=== PATIENT | female | born 1995 | race Native Hawaiian/Other Pacific Islander ===

== ENCOUNTER → 2017-11-06 10:37 | Outpatient (CLI) | payer OTHER, SELFPAY ==
[2017-11-07 14:36] LABS: Strep Grp B PCR NEG for Grp B Strep
== END ==
DX: Z34.03 Encounter for supervision of normal first pregnancy, third trimester (principal); Z3A.35 35 weeks gestation of pregnancy
CPT/HCPCS: 87653

== ENCOUNTER 2017-11-16 05:09 | Inpatient (IN) | payer OTHER, SELFPAY ==
[2017-11-16] VITALS (10 sets, daily range): BP systolic 59–151; BP diastolic 29–84; PULSE 88–103; RESP 17–22; TEMP 36.3–37.6; O2SAT 97–100
[2017-11-16 05:38] LABS: Bacteria Urine None Seen
[2017-11-16 05:40] LABS: Add Manual Diff / Slide Review NO; Basophils Percent Auto 0.2 % (0-2); Eosinophils Percent Auto 0.5 % (2-4); Hematocrit 33.2 % (36-46); Hemoglobin 11.5 g/dL (12.0-16.0); Lymphocytes Percent Auto 18.7 % (25-40); Mean Corpuscular HGB Conc 34.8 % (30-36); Mean Corpuscular Hemoglobin 27.4 PG (26-34); Mean Corpuscular Volume 78.9 fL (80-100); Monocytes Percent Auto 5.6 % (3-14); Neutrophils Absolute Auto 8200 /uL (3000-5900); Platelet Count 220 X10^3/uL (150-400); Red Blood Cell Count 4.21 X10^6/uL (4.0-5.2); Red Cell Distribution Width 15.8 % (11.6-14.8)
[2017-11-16 05:42] LABS: Appearance Urine UA CLEAR; Bilirubin Urine UA NEGATIVE (NEGATIVE); Color Urine UA YELLOW; Glucose Urine UA NEGATIVE (Normal); Ketones Urine UA NEGATIVE (NEGATIVE); Leukocyte Esterase Urine UA NEGATIVE (NEGATIVE); Nitrite Urine UA Negative (Negative); Occult Blood Urine UA 1+ (Negative); Protein Urine UA NEGATIVE (Negative); Urobilinogen Urine UA 0.2 E.U./dL (0.2)
[2017-11-16 05:50] LABS: Culture Indicated Urine Cult Not Indicated; RBC Urine 0-1/HPF (0-5/HPF); Squamous Epithelial Cell Urine 0-1 /HPF; WBC Urine 0-1/HPF (0-5/HPF)
--- NOTE | 2017-11-16 07:25 | PM.OBHP.1 ---
OB HPI History of Present Illness Chief complaint: EVALUATION OF LABOR Narrative: Ketan Patterson is a 22 year old female gestational diabetic at 36 weeks of who presents with premature spontaneous rupture membranes. Patient is in active labor. The patient is a one para 0 with an ROBERT established by a 20 week ultrasound of December 08, 2017. The patient transferred care from [facility] at 34 weeks of . She is blood type B-positive antibody screen negative. Her last hematocrit history. Her hepatitis B surface antigen was negative. Her HIV was negative. Chlamydia and GC screens were negative. Her hep C was negative. The patient had a 2nd trimester quad screening which was negative. The patient had reported abnormal 1 hr screen and a fasting of her 3 hr screen was 132 and three are screen was canceled. Patient was placed on a 1500 calorie ADA diet and followed. Her blood sugars fasting remained low 90s or high these. Her 1 hr screens were consistently 120 or less. Weight remains stable through this period of time. Serial ultrasounds showed accelerated growth curve beginning at the 78th percentile with a 2nd screen at the 90th percentile. Patient now presents with spontaneous rupture the membranes in active labor. Evaluation Evaluation Variability: Average (6-10) monitor accelerations: Present Uterine Contraction Intensity: Strong/Firm Category of Tracing: I Cervical dilation (cm): 4 Cervical effacement (%): 100 station: -2 Laboratory results: Laboratory Tests 11/16/17 11/16/17 11/16/17 04:55 05:15 05:15 WBC 11.0 RBC 4.21 Hgb 11.5 L Hct 33.2 L MCV 78.9 L MCH 27.4 MCHC 34.8 RDW 15.8 H Plt Count 220 Neut % (Auto) 75.0 Lymph % (Auto) 18.7 L [place] % (Auto) 5.6 Eos % (Auto) 0.5 L Baso % (Auto) 0.2 Neut # (Auto) 8200 H Urine Color Yellow Urine Appearance Clear Urine pH 7.0 Ur Specific [place] 1.010 Urine Protein Negative Urine Glucose (UA) Negative Urine Ketones Negative Urine Occult Blood 1+ H Urine Nitrate Negative Urine Bilirubin Negative Urine Urobilinogen 0.2 Ur Leukocyte Esterase Negative Urine RBC 0-1/hpf Urine WBC 0-1/hpf Ur Squamous Epith Cells 0-1 /hpf Urine Bacteria None seen Ur Culture Indicated? Cult not indicated Micro UA Comment Not Reportable Blood Type B Positive Antibody Screen Negative Non-invasive Membranes Rupture Test: positive Comments: Patient presented in active labor 4 cm dilated with documented rupture membranes [facility] Social History Smoking Status: Former smoker Meds Home Medications Medication Instructions Recorded Confirmed Type 1 tab PO DAILY 11/16/17 11/16/17 History vitamin B complex 1 tab PO DAILY 11/16/17 11/16/17 History Allergies Allergy/AdvReac Type Severity Reaction Status Date / Time No Known Drug Allergies Allergy Verified 11/16/17 04:48 Exam Vital Signs (past 8 hours): Vital Signs - 8 hr 11/16/17 05:52 Blood Pressure 151/84 H HENMT Head: normal to inspection Ears: hearing grossly normal bilaterally Nose: external nose normal Face and sinus: normal facial exam Mouth: oral mucosae normal and tongue normal Teeth and gingiva: dentition normal Throat: posterior oropharynx normal and uvula midline Eyes General: appearance normal, both eyes and all related structures Eyelids: eyelids normal Conjunctivae: conjunctivae normal Sclera: sclerae normal Cornea: corneas normal Pupils: PERRL Chest Breast inspection: normal inspection of the breasts Breast Palpation: normal palpation of the breasts Resp Effort & Inspection: normal respiratory effort Auscultation: clear to auscultation bilaterally Cardio Palpation: normal PMI Rate: regular rate Rhythm: regular rhythm Heart Sounds: S1 normal and S2 normal GI Palpation: soft and no hepatosplenomegaly Percussion: normal to percussion Auscultation: normal bowel sounds Back/Spine/Pelvis Thoracic/Lumbar Spine: thoracic and lumbar spine normal to inspection Skin Lesions: no lesions Rashes: no rashes Trauma: no lacerations or abrasions Wounds: no wounds Neuro General: alert, tone normal, no focal motor deficits and normal sensation to monofilament Extrem General: normal to inspection and full ROM Psych Appearance: grossly normal Objective Labs Result Diagrams: 11/16/17 05:15 Labs: Laboratory Results - last 24 hr 11/16/17 11/16/17 11/16/17 04:55 05:15 05:15 WBC 11.0 RBC 4.21 Hgb 11.5 L Hct 33.2 L MCV 78.9 L MCH 27.4 MCHC 34.8 RDW 15.8 H Plt Count 220 Neut % (Auto) 75.0 Lymph % (Auto) 18.7 L [place] % (Auto) 5.6 Eos % (Auto) 0.5 L Baso % (Auto) 0.2 Neut # (Auto) 8200 H Urine Color Yellow Urine Appearance Clear Urine pH 7.0 Ur Specific [place] 1.010 Urine Protein Negative Urine Glucose (UA) Negative Urine Ketones Negative Urine Occult Blood 1+ H Urine Nitrate Negative Urine Bilirubin Negative Urine Urobilinogen 0.2 Ur Leukocyte Esterase Negative Urine RBC 0-1/hpf Urine WBC 0-1/hpf Ur Squamous Epith Cells 0-1 /hpf Urine Bacteria None seen Ur Culture Indicated? Cult not indicated Micro UA Comment Not Reportable Blood Type B Positive Antibody Screen Negative Assessment and Plan Plan: Plan: 36 weeks with premature rupture membranes Gestational diabetic diet controlled Active labor Short maternal stature
--- NOTE | 2017-11-16 07:38 | P.HPOB_ITS ---
OB HPI History of Present Illness Chief complaint: EVALUATION OF LABOR Narrative: Ketan Patterson is a 22 year old female gestational diabetic at 36 weeks of who presents with premature spontaneous rupture membranes. Patient is in active labor. The patient is a one para 0 with an ROBERT established by a 20 week ultrasound of December 08, 2017. The patient transferred care from [facility] at 34 weeks of . She is blood type B-positive antibody screen negative. Her last hematocrit history. Her hepatitis B surface antigen was negative. Her HIV was negative. Chlamydia and GC screens were negative. Her hep C was negative. The patient had a 2nd trimester quad screening which was negative. The patient had reported abnormal 1 hr screen and a fasting of her 3 hr screen was 132 and three are screen was canceled. Patient was placed on a 1500 calorie ADA diet and followed. Her blood sugars fasting remained low 90s or high these. Her 1 hr screens were consistently 120 or less. Weight remains stable through this period of time. Serial ultrasounds showed accelerated growth curve beginning at the 78th percentile with a 2nd screen at the 90th percentile. Patient now presents with spontaneous rupture the membranes in active labor. Evaluation Evaluation Variability: Average (6-10) monitor accelerations: Present Uterine Contraction Intensity: Strong/Firm Category of Tracing: I Cervical dilation (cm): 4 Cervical effacement (%): 100 station: -2 Laboratory results: Laboratory Tests 11/16/17 11/16/17 11/16/17 04:55 05:15 05:15 WBC 11.0 RBC 4.21 Hgb 11.5 L Hct 33.2 L MCV 78.9 L MCH 27.4 MCHC 34.8 RDW 15.8 H Plt Count 220 Neut % (Auto) 75.0 Lymph % (Auto) 18.7 L [place] % (Auto) 5.6 Eos % (Auto) 0.5 L Baso % (Auto) 0.2 Neut # (Auto) 8200 H Urine Color Yellow Urine Appearance Clear Urine pH 7.0 Ur Specific [place] 1.010 Urine Protein Negative Urine Glucose (UA) Negative Urine Ketones Negative Urine Occult Blood 1+ H Urine Nitrate Negative Urine Bilirubin Negative Urine Urobilinogen 0.2 Ur Leukocyte Esterase Negative Urine RBC 0-1/hpf Urine WBC 0-1/hpf Ur Squamous Epith Cells 0-1 /hpf Urine Bacteria None seen Ur Culture Indicated? Cult not indicated Micro UA Comment Not Reportable Blood Type B Positive Antibody Screen Negative Non-invasive Membranes Rupture Test: positive Comments: Patient presented in active labor 4 cm dilated with documented rupture membranes [facility] Social History Smoking Status: Former smoker Meds Home Medications Medication Instructions Recorded Confirmed Type 1 tab PO DAILY 11/16/17 11/16/17 History vitamin B complex 1 tab PO DAILY 11/16/17 11/16/17 History Allergies Allergy/AdvReac Type Severity Reaction Status Date / Time No Known Drug Allergies Allergy Verified 11/16/17 04:48 Exam Vital Signs (past 8 hours): Vital Signs - 8 hr 3 11/16/17 05:52 Blood Pressure 151/84 H HENMT Head: normal to inspection Ears: hearing grossly normal bilaterally Nose: external nose normal Face and sinus: normal facial exam Mouth: oral mucosae normal and tongue normal Teeth and gingiva: dentition normal Throat: posterior oropharynx normal and uvula midline Eyes General: appearance normal, both eyes and all related structures Eyelids: eyelids normal Conjunctivae: conjunctivae normal Sclera: sclerae normal Cornea: corneas normal Pupils: PERRL Chest Breast inspection: normal inspection of the breasts Breast Palpation: normal palpation of the breasts Resp Effort & Inspection: normal respiratory effort Auscultation: clear to auscultation bilaterally Cardio Palpation: normal PMI Rate: regular rate Rhythm: regular rhythm Heart Sounds: S1 normal and S2 normal GI Palpation: soft and no hepatosplenomegaly Percussion: normal to percussion Auscultation: normal bowel sounds Back/Spine/Pelvis Thoracic/Lumbar Spine: thoracic and lumbar spine normal to inspection Skin Lesions: no lesions Rashes: no rashes Trauma: no lacerations or abrasions Wounds: no wounds Neuro General: alert, tone normal, no focal motor deficits and normal sensation to monofilament Extrem General: normal to inspection and full ROM Psych Appearance: grossly normal Objective Labs Result Diagrams: 11/16/17 05:15 Labs: Laboratory Results - last 24 hr 11/16/17 11/16/17 11/16/17 04:55 05:15 05:15 WBC 11.0 RBC 4.21 Hgb 11.5 L Hct 33.2 L MCV 78.9 L MCH 27.4 MCHC 34.8 RDW 15.8 H Plt Count 220 Neut % (Auto) 75.0 Lymph % (Auto) 18.7 L [place] % (Auto) 5.6 Eos % (Auto) 0.5 L Baso % (Auto) 0.2 Neut # (Auto) 8200 H Urine Color Yellow Urine Appearance Clear Urine pH 7.0 Ur Specific [place] 1.010 Urine Protein Negative Urine Glucose (UA) Negative Urine Ketones Negative Urine Occult Blood 1+ H Urine Nitrate Negative Urine Bilirubin Negative Urine Urobilinogen 0.2 Ur Leukocyte Esterase Negative Urine RBC 0-1/hpf Urine WBC 0-1/hpf Ur Squamous Epith Cells 0-1 /hpf Urine Bacteria None seen Ur Culture Indicated? Cult not indicated Micro UA Comment Not Reportable Blood Type B Positive Antibody Screen Negative Assessment and Plan Plan: Plan: 36 weeks with premature rupture membranes Gestational diabetic diet controlled Active labor Short maternal stature
[2017-11-16] MEDS: LACTATED RINGERS 1,000 ML 100 ML IV (08:30)
[2017-11-16] MEDS: OXYTOCIN PREMIX 30 UNIT/500 ML PLAST..BAG IV (09:15)
--- NOTE | 2017-11-16 09:56 | PM.OBPNLAB ---
Date/Time Date Patient Seen: 11/16/17 Time Patient Seen: 09:56 Pain Control Pain control: tolerating well and epidural Pelvic Exam Dilation (cm): 7 Effacement (%): 100 station: 0 Amniotic membrane status: Ruptured Comments: epeidural inplace. Started on pitocine Contractions Contraction intensity: Strong/Firm
--- NOTE | 2017-11-16 14:53 | PM.OBPRVD ---
Events: Labor < 37 Weeks, Labor Augmentation and Premature Rupture of Membrane Delivery date: 11/16/17 Intrapartal events: Mild Preeclampsia Induction method: none Delivery monitor: external FHT Route of delivery: Laceration description: Perineal - 2nd Degree Delivery repair: chromic Estimated blood loss (mL): 250 Anesthesia type: Epidural Complications: Significant shoulder dystocia corrected by Mata's maneuver rotation of the shoulders and delivery of the posterior arm Narrative: The patient was admitted at 36 weeks of with premature spontaneous rupture of the membranes in active labor. Her blood pressures were mildly elevated and she needed 10 mg labetalol to bring her pressures in a more normal range. Patient received epidural anesthesia and made rapid progress to complete. Patient pushed and delivered with a significant shoulder dystocia corrected by the Mata's maneuver rotation of the shoulders and deliver the posterior arm a live-born male infant with scores of four at 1 min and nine at 5 min. The patient sustained a second-degree perineal laceration. She had no cervical or vaginal tears. The placenta delivered spontaneously. The cord had three vessels. The estimated blood loss was 250 cc. The laceration was closed two 0 chromic suture without difficulty.
[2017-11-16] MEDS: fentaNYL 100 MCG/2 ML INJ 50 MCG IV (15:50)
[2017-11-16] MEDS: CEFOTETAN 2 GM/50 ML PIGGYBACK IV (16:16)
--- NOTE | 2017-11-16 16:56 | PM.GYNOP.1 ---
Operative Date/Time/Diagnoses - Date of procedure: 11/16/17 Time of procedure: 16:56 Pre-op diagnosis: Retained intrauterine blood clots post delivery Post-op diagnosis: same Procedure: Procedures Operation Date: 11/16/17 17:30 Actual Procedures Side Surgeon p Dilation and Curettage Paolo Banuelos MD Surgeon: Paolo Banuelos Anesthesia Type: Epidural and Sedation Operative Notes Findings: Large numbers of intrauterine blood clot Closure Type: not applicable Specimen(s): none Applied: catheter Estimated blood loss (mL): 1,000 Blood products transfused: none Procedure in detail: The patient is placed supine upon the operating table and epidural was set in place. Patient was then placed in the dorsal lithotomy position approximately 1000 cc of clots were removed from vagina. Tied Ray-Simon sponges were then used and introduced into the uterine cavity and the remainder of the blood clots removed. The by bacri balloon was then introduced and the bulb expanded to 180 cc. A drainage connection was hooked to the end to age a Salvador evacuator. There has been bleeding at the end of the procedure. A Spaulding catheter was then placed in the urine was clear. Patient tolerated the procedure well and was taken to the recovery room in satisfactory condition Post-operative Condition: stable Disposition: PACU Plan for aftercare: Transfer to [facility]
--- NOTE | 2017-11-16 17:00 | SUR.PHASEI ---
hypotentsion on arrival noted. Dr. Yung at bedside phenylephrine per dr. gomez. patient remains drowsy but responding to verbal c/o breast pressure and need to nurse. BP improved to 94/[address] gomez at bedside.
--- NOTE | 2017-11-16 17:11 | SUR.PHASEI ---
fundal check per OB rn. vaginal balloon in place attached to SHAI drain. minimal amount of blood in SHAI unchanged. able to express bright red blood around vaginal tube small amount with fundal check.
--- NOTE | 2017-11-16 17:21 | SUR.PHASEI ---
OB RN at bedside assissting in care report provided along with joint exam.
--- NOTE | 2017-11-16 17:24 | SUR.PHASEI ---
lab here for blood draw. report of pt. status to Dr. Yung approved transfer to L&D.
[2017-11-16 17:50] LABS: Add Manual Diff / Slide Review NO; Basophils Percent Auto 0.1 % (0-2); Eosinophils Percent Auto 0.1 % (2-4); Hematocrit 29.4 % (36-46); Hemoglobin 10.1 g/dL (12.0-16.0); Mean Corpuscular HGB Conc 34.4 % (30-36); Mean Corpuscular Hemoglobin 27.2 PG (26-34); Mean Corpuscular Volume 79.1 fL (80-100); Monocytes Percent Auto 5.8 % (3-14); Neutrophils Absolute Auto 16500 /uL (3000-5900); Platelet Count 208 X10^3/uL (150-400); Red Blood Cell Count 3.72 X10^6/uL (4.0-5.2); Red Cell Distribution Width 15.9 % (11.6-14.8); White Blood Cell Count 18.5 X10^3/uL (4.5-11.0)
[2017-11-16] MEDS: OXYCODONE/ACETAMINOPHEN 5/325 TABLET 2 TAB PO ×2 (18:22→23:09)
[2017-11-17] MEDS: LACTATED RINGERS 1,000 ML 125 ML IV (04:42)
--- NOTE | 2017-11-17 08:28 | P.DS_ITS ---
History of Present Illness Date Patient Seen: 11/17/17 Time Patient Seen: 08:27 Chief complaint: post of discharge Narrative: The patient Discharge Providers Date of admission: 11/16/17 05:09 Primary care physician: Paolo Banuelos MD Consults: 11/16/17 17:28 Consult to Community Relations Officer Routine Comment: Discharge provider: Paolo Banuelos MD Exam Vital Signs (past 8 hours): Pulse Oximetry 100 Oxygen Delivery Method Room Air Objective Labs Result Diagrams: 11/16/17 17:29 Labs: Laboratory Results - last 24 hr 11/16/17 11/16/17 17:29 17:29 WBC Cancelled 18.5 H D RBC Cancelled 3.72 L Hgb Cancelled 10.1 L Hct Cancelled 29.4 L MCV Cancelled 79.1 L MCH Cancelled 27.2 MCHC Cancelled 34.4 RDW Cancelled 15.9 H Plt Count Cancelled 208 Neut % (Auto) Cancelled 89.0 H Lymph % (Auto) Cancelled 5.0 L [place] % (Auto) Cancelled 5.8 Eos % (Auto) Cancelled 0.1 L Baso % (Auto) Cancelled 0.1 Neut # (Auto) Cancelled 10124 H Discharge Plan Discharge Plan Patient Disposition: Home, Self-Care Discharge Med Rec/Prescriptions Prescriptions: New oxycodone-acetaminophen [Percocet] 5-325 mg tablet 2 tab PO Q4-6H PRN (Reason: pain) Qty: 30 RF: 0 hydromorphone [Dilaudid] 2 mg tablet 2 mg PO Q4-6H PRN (Reason: pain) Qty: 10 RF: 0 Continue 1 tab tablet 1 tab PO DAILY RF: 0 vitamin B complex 1 tab tablet 1 tab PO DAILY RF: 0 Follow up/Referrals: Paolo Banuelos MD [Primary Care Provider] - 12/01/17 12:00 am Provider Discharge Instructions Diet: Diet as Tolerated Activity: up ad daryl may shower and bathe Wound Care Report to your healthcare provider any signs of infection, such as:: chills, fever, night sweats, increased pain and unusual drainage Discharge Data Primary Care Provider: Paolo Banuelos Attending Provider: Usman Jacobsen Admit Date/Time: 11/16/17 05:09
[2017-11-17 10:55] LABS: Hematocrit 18.4 % (36-46)
[2017-11-17] MEDS: OXYCODONE/ACETAMINOPHEN 5/325 TABLET 2 TAB PO ×2 (10:56→23:56)
[2017-11-17] MEDS: DOCUSATE 250 MG CAPSULE PO (10:56)
[2017-11-17] MEDS: FERROUS GLUCONATE 324 MG TABLET PO (11:01)
[2017-11-17 12:14] VITALS: BP 132/84; PULSE 105; RESP 18; TEMP 36.6
[2017-11-17 12:37] VITALS: BP 134/82; PULSE 103; RESP 18; TEMP 36.3
[2017-11-17 15:49] VITALS: BP 119/80; PULSE 84; RESP 16; TEMP 36.9
[2017-11-17 16:55] VITALS: BP 145/90; PULSE 97; RESP 18; TEMP 37.1
[2017-11-17 18:00] VITALS: BP 138/84; PULSE 91; RESP 17; TEMP 37
[2017-11-17 20:20] VITALS: BP 136/86; PULSE 90; RESP 17; TEMP 37.1
[2017-11-17] MEDS: LANOLIN OINT 7 GM 1 APPLIC TOP (23:55)
[2017-11-18] MEDS: DOCUSATE 250 MG CAPSULE PO (08:35)
[2017-11-18] MEDS: FERROUS GLUCONATE 324 MG TABLET PO (08:35)
[2017-11-18] MEDS: OXYCODONE/ACETAMINOPHEN 5/325 TABLET 2 TAB PO ×4 (08:35→20:30)
[2017-11-18 10:06] VITALS: BP 145/97; PULSE 113
[2017-11-18] MEDS: LABETALOL 20 MG/4 ML SYRINGE 10 MG IV (10:06)
--- NOTE | 2017-11-18 11:49 | P.PNOB_ITS ---
Subjective - OB Patient comments: no complaints baby status: doing well and nursing well feeding status: exclusively breast feeding Narrative: Patient status post vaginal delivery doing well patient sustained a hemorrhage of over 1000 cc. Her hematocrit fell to 18% and she was transfused 2 units of pack cells and her hematocrit this morning is 26%. She is up and about without any syncopal episodes in doing well. Exam Vital Signs (past 8 hours): Vital Signs - 8 hr 3 11/18/17 10:06 Pulse Rate 113 H Blood Pressure 145/97 H Pulse Oximetry 100 Oxygen Delivery Method Room Air Narrative Exam Narrative: Examination is confined abdomen pelvis The abdomen is soft and nontender with the fundus at U minus four Perineum is intact Lochia scant Objective Labs Result Diagrams: 11/17/17 21:40 Labs: Laboratory Results - last 24 hr 11/16/17 11/17/17 05:15 21:40 Hgb 9.0 L Hct 26.0 L Blood Type B Positive Antibody Screen Negative Crossmatch (AHG) See Detail Assessment & Plan Plan day: 2 plan OB: routine care Comments: Patient doing well. Mobile without any syncopal episodes. Baby is having bilirubin issues and is under the bili lights Time Spent With Patient Total time spent is greater than 50% in coordination of care (as documented) at patient's floor/unit and/or counseling patient: less than 15 minutes
[2017-11-18 11:55] VITALS: BP 128/84; PULSE 99
[2017-11-18] MEDS: LABETALOL 100 MG TABLET PO ×2 (11:55→21:00)
[2017-11-19] MEDS: OXYCODONE/ACETAMINOPHEN 5/325 TABLET 2 TAB PO ×4 (00:30→14:10)
[2017-11-19 09:32] VITALS: BP 138/76
[2017-11-19] MEDS: FERROUS GLUCONATE 324 MG TABLET PO (09:32)
[2017-11-19] MEDS: LABETALOL 100 MG TABLET PO (09:32)
[2017-11-19] MEDS: DOCUSATE 250 MG CAPSULE PO (09:33)
--- NOTE | 2017-11-19 10:35 | PM.OBDS.1 ---
Discharge Providers Date of admission: 11/16/17 05:09 Primary care physician: Paolo Banuelos MD Consults: 11/16/17 17:28 Consult to Ship Engines Operating Engineer Routine Comment: Discharge provider: Paolo Banuelos MD Discharge Date: 11/19/17 Summary Date Patient Seen: 11/19/17 Time Patient Seen: 10:36 Hospital Course: Please see detailed hospital course in procedures section below Peripartum Data Delivery Method: Natural Vaginal Laceration description: Perineal - 2nd Degree Procedures: Patient presented in active labor at 36 weeks of with premature rupture the membranes. Patient had been wrapped in labor to complete and delivered spontaneously a live born male without difficulty. Patient our sustained a significant hemorrhage and was taken to surgery where bacri balloon was placed with good results. Patient's hematocrit fell to 18 and she was transfused 2 units of blood. Her post transfusion hematocrit was 26%. Patient also had elevated blood pressures during her labor and and was given IV labetalol and placed on oral dosage of 100 mg twice a day of labetalol. She was also discharged on this medicine. complications: transfusion and uterine atony Status at Discharge Functional status at discharge: independent ambulation Overall status at discharge: patient is back to baseline Time Spent with Patient Total time spent providing and/or coordinating discharge services: Less than 30 minutes Objective Labs Result Diagrams: 11/17/17 21:40 Discharge Plan Discharge Plan Patient Disposition: Home, Self-Care Discharge Med Rec/Prescriptions Prescriptions: New oxycodone-acetaminophen [Percocet] 5-325 mg tablet 2 tab PO Q4-6H PRN (Reason: pain) Qty: 30 RF: 0 benzocaine-menthol [Dermoplast (with menthol)] 20-0.5 % Aerosol 1 spray Topical Q1HR PRN (Reason: Pain, Moderate) Qty: 1 RF: 0 labetalol 100 mg Tablet 100 mg PO BID Qty: 40 RF: 0 docusate sodium 250 mg Capsule 250 mg PO DAILY Qty: 20 RF: 0 lanolin [[id number]] Cream 1 applic Topical PRN PRN (Reason: Tenderness) Qty: 1 RF: 0 ferrous gluconate 324 mg (38 mg iron) Tablet 324 mg PO DAILY Qty: 90 RF: 0 oxycodone-acetaminophen [Percocet] 5-325 mg tablet 2 tab PO Q4-6H PRN (Reason: pain) Qty: 30 RF: 0 Continue 1 tab tablet 1 tab PO DAILY RF: 0 vitamin B complex 1 tab tablet 1 tab PO DAILY RF: 0 Follow up/Referrals: Paolo Banuelos MD [Primary Care Provider] - 12/01/17 12:00 am Provider Discharge Instructions Diet: Diet as Tolerated Activity: up ad daryl may shower and bathe Wound Care Report to your healthcare provider any signs of infection, such as:: chills, fever, night sweats, increased pain and unusual drainage Discharge Data Primary Care Provider: Paolo Banuelos Attending Provider: Usman Jacobsen Admit Date/Time: 11/16/17 05:09
[2017-11-19 12:26] VITALS: BP 138/76; PULSE 99; RESP 17; TEMP 37.1
== END 2017-11-19 14:18 | disposition home or self-care (01) | DRG 768 ==
PROVIDERS: Admitting Provider Family Medicine; Visit Provider Family Medicine
PROC: 10E0XZZ Delivery of Products of Conception, External Approach (ICD-10-PCS; CPT 58120; principal; 2017-11-16 17:30)
DX: O42.013 Preterm premature rupture of membranes, onset of labor within 24 hours of rupture, third trimester (principal); O60.14X0 Preterm labor third trimester with preterm delivery third trimester, not applicable or unspecified; O72.2 Delayed and secondary postpartum hemorrhage; Z3A.36 36 weeks gestation of pregnancy; Z37.0 Single live birth; O66.0 Obstructed labor due to shoulder dystocia; O14.04 Mild to moderate pre-eclampsia, complicating childbirth; O70.1 Second degree perineal laceration during delivery; O24.420 Gestational diabetes mellitus in childbirth, diet controlled
CPT/HCPCS: 01967; 36415; 36430; 59025; 59050; 59410; 81001; 84112; 85014; 85018; 85025; 86850; 86900; 86901; P9016; G0379; J2590; J3010